=== PATIENT | female | born 1995 | race Caucasian/White ===

== ENCOUNTER 2017-07-22 16:34 | Emergency (ER) | payer OTHER ==
[2017-07-22 16:50] VITALS: BP 134/82
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
[2017-07-24 14:13] LABS: HCV ANTIBODY 0.1 s/co ratio (0.0-0.9); HEP A IGM ABDY Negative (Negative)
== END 2017-07-22 18:36 | disposition home or self-care (01) ==
LOC: ER 16:34
DX: Z77.21 Contact with and (suspected) exposure to potentially hazardous body fluids (principal); K21.9 Gastro-esophageal reflux disease without esophagitis
CPT/HCPCS: 36415; 80074; 86701; 86702; 86703; 87535; 99281; 99284